=== PATIENT | male | born 1960 | race Caucasian/White ===

== ENCOUNTER 2017-05-17 08:40 | Emergency (ER) | payer OTHER ==
[~2017-05-17] VITALS: Ht 188 cm; Wt 109.0 kg
[2017-05-17 09:44] LABS: EOSINOPHIL (%) 2.7 % (0-5); EOSINOPHIL COUNT 0.2 K/uL (0-0.3); HEMATOCRIT 33.6 % (38.0-50.0); IMMATURE GRANULOCYTE (%) 0.7 % (0.0-0.7); IMMATURE GRANULOCYTE COUNT 0.1 K/uL; INSTRUMENT ABS NEUTROPHIL CT 6.1 K/uL; LYMPHOCYTE COUNT 1.2 K/uL (1.0-2.8); MCH 30.2 PG (29.0-34.0); MCV 91.6 FL (86-99); MEAN PLAT.VOLUME 9.2 uM^3 (9.0-12.4); NEUTROPHIL (%) 70.4 % (45-76); NEUTROPHIL COUNT 6.1 K/uL (1.8-6.4); PLATELET COUNT 268 K/uL (156-360); RBC DIS.WIDTH-CV 12.3 % (11.8-14.6); RBC DIS.WIDTH-SD 40.9 % (39-53); RED BLOOD COUNT 3.67 M/uL (4.00-5.50); WHITE BLOOD COUNT 8.6 K/uL (4.1-10.2)
[2017-05-17 09:54] LABS: CHLORIDE 106 mEq/L (99-109); POTASSIUM 4.4 mEq/L (3.7-5.4); SODIUM 139 mEq/L (136-147)
[2017-05-17 09:56] LABS: GLUCOSE 121 mg/dL (70-99)
[2017-05-17 09:57] LABS: ANION GAP 9 MEQ/L (2-14)
[2017-05-17 10:00] LABS: GFR ESTIMATE (CALCULATED) > 59 mL/min/; UREA NITROGEN (BUN) 17 mg/dL (9-23)
[2017-05-17 10:06] LABS: TROP-I INTERPRETATION NEGATIVE; TROPONIN-I < 0.01 ng/mL (0.0-0.30)
[2017-05-17] MEDS ORDERED: MOTRIN800 MG PO (13:11)
[2017-05-17 14:02] VITALS: BP 129/71
== END 2017-05-17 14:22 | disposition home or self-care (01) ==
LOC: EME → EDBD 08:40 → EME 08:40
PROVIDERS: Emergency Medicine
DX: S40.011A Contusion of right shoulder, initial encounter (principal); M79.601 Pain in right arm; W18.39XA Other fall on same level, initial encounter; F17.200 Nicotine dependence, unspecified, uncomplicated
CPT/HCPCS: 71010; 73030; 73080; 73090; 80048; 84484; 85025; 93005; 94640; 99281; 99284

== ENCOUNTER 2017-12-24 13:13 | Observation (INO) | payer OTHER ==
[~2017-12-24] VITALS: Ht 188 cm; Wt 106.1 kg
[~2017-12-24 13:13] MED LIST: ADVAIR HFA120 INHALA IH; ATORVASTATIN CA80 MG PO; BAYER CHEWABLE81 MG PO; CLOPIDOGREL75 MG PO; CYCLOBENZAPRINE10 MG PO; METOPROLOL TART25 MG PO; MOTRIN800 MG PO; NICOTINE PATCH1 EAC2 TD; PANTOPRAZOLE SO40 MG PO; PROVENTIL HFA6.7 GM IH; SPIRIVA RESPIMAT4 GM IH; TAMSULOSIN HCL0.4 MG PO; TRAMADOL HCL50 MG PO; VENTOLIN HFA18 GM IH
[2017-12-24 14:21] LABS: BASOPHIL (%) 0.4 % (0-1); EOSINOPHIL (%) 2.8 % (0-5); EOSINOPHIL COUNT 0.1 K/uL (0-0.3); HEMATOCRIT 32.7 % (38.0-50.0); HEMOGLOBIN 10.6 G/DL (12.5-16.6); IMMATURE GRANULOCYTE (%) 0.2 % (0.0-0.7); LYMPHOCYTE (%) 27.5 % (15-42); LYMPHOCYTE COUNT 1.4 K/uL (1.0-2.8); MCHC 32.4 G/DL (30.0-36.0); MCV 83.2 FL (86-99); MONOCYTE (%) 10.8 % (3-12); MONOCYTE COUNT 0.6 K/uL (0-0.8); NEUTROPHIL (%) 58.3 % (45-76); PLATELET COUNT 208 K/uL (156-360); RBC DIS.WIDTH-CV 15.3 % (11.8-14.6); RBC DIS.WIDTH-SD 46.5 % (39-53); RED BLOOD COUNT 3.93 M/uL (4.00-5.50); WHITE BLOOD COUNT 5.1 K/uL (4.1-10.2)
[2017-12-24 14:28] LABS: PTT 30.6 SEC (25-37)
[2017-12-24 14:30] LABS: CHLORIDE 107 mEq/L (99-109); POTASSIUM 4.2 mEq/L (3.7-5.4); SODIUM 139 mEq/L (136-147)
[2017-12-24 14:32] LABS: GLUCOSE 94 mg/dL (70-99)
[2017-12-24 14:36] LABS: CREATININE 0.8 mg/dL (0.6-1.3); GFR ESTIMATE (CALCULATED) > 59 mL/min/ (58.99-99999)
[2017-12-24 14:37] LABS: UREA NITROGEN (BUN) 13 mg/dL (9-23)
[2017-12-24 14:41] LABS: TROP-I INTERPRETATION NEGATIVE; TROPONIN-I 0.04 ng/mL (0.0-0.30)
[2017-12-24] MEDS ORDERED: HYDROXYZINE PAM25 MG PO (21:06)
[2017-12-24] MEDS ORDERED: NICODERM CQ1 EAC2 TD (21:10)
[2017-12-24 21:23] LABS: TROP-I INTERPRETATION NEGATIVE; TROPONIN-I 0.02 ng/mL (0.0-0.30)
[2017-12-24 21:47] VITALS: BP 134/66
[2017-12-24 23:38] LABS: APPEARANCE CLEAR ((CLEAR)); BILIRUBIN NEGATIVE; BLOOD NEGATIVE; COLOR YELLOW ((YELLOW)); GLUCOSE (STRIP) NEGATIVE; KETONES NEGATIVE; LEUKOCYTES NEGATIVE; NITRITE NEGATIVE; PROTEIN (STRIP) NEGATIVE; SPECIFIC GRAVITY 1.015 (1.000-1.030); UCUL ADDED? NO; UROBILINOGEN 0.2 MG/DL (0.2-1.0)
[2017-12-25 03:16] VITALS: BP 128/70
[2017-12-25 03:44] LABS: TROP-I INTERPRETATION NEGATIVE; TROPONIN-I 0.02 ng/mL (0.0-0.30)
[2017-12-25 07:00] VITALS: BP 150/96
[2017-12-25 11:12] VITALS: BP 135/65
[2017-12-25] MEDS ORDERED: PANTOPRAZOLE SO40 MG PO (15:16)
[2017-12-25] MEDS ORDERED: NICODERM CQ1 EAC2 TD (15:16)
[2017-12-25] MEDS ORDERED: TAMSULOSIN HCL0.4 MG PO (15:16)
[2017-12-25] MEDS ORDERED: VENTOLIN HFA18 GM IH (15:16)
[2017-12-25] MEDS ORDERED: ATORVASTATIN CA80 MG PO (15:16)
[2017-12-25] MEDS ORDERED: BAYER CHEWABLE81 MG PO (15:16)
[2017-12-25] MEDS ORDERED: CLOPIDOGREL75 MG PO (15:16)
[2017-12-25] MEDS ORDERED: HYDROXYZINE PAM25 MG PO (15:16)
[2017-12-25] MEDS ORDERED: METOPROLOL TART25 MG PO (15:16)
== END 2017-12-25 18:02 | disposition home or self-care (01) ==
LOC: EME 13:13 → EDOF 20:07 → ENRESERV 20:11 → 5WEST 21:42
PROVIDERS: Emergency Medicine; Physician Assistant
DX: R07.89 Other chest pain (principal); I25.10 Atherosclerotic heart disease of native coronary artery without angina pectoris; Z95.1 Presence of aortocoronary bypass graft; M79.604 Pain in right leg; F17.210 Nicotine dependence, cigarettes, uncomplicated; I10 Essential (primary) hypertension; E78.5 Hyperlipidemia, unspecified; Z59.0 Homelessness; J44.9 Chronic obstructive pulmonary disease, unspecified; Z79.82 Long term (current) use of aspirin; N40.0 Benign prostatic hyperplasia without lower urinary tract symptoms; T39.016A Underdosing of aspirin, initial encounter; Z91.120 Patient's intentional underdosing of medication regimen due to financial hardship
CPT/HCPCS: 71045; 71275; 80048; 81003; 83735; 84484; 85025; 85610; 85730; 87502; 93005; 93971; 94640; 94640 76; 94760; 99202; 99281; 99285; G0378; J1644; J1885; J3010; J7030

== ENCOUNTER 2018-01-12 18:31 | Emergency (ER) | payer OTHER ==
[~2018-01-12] VITALS: Ht 188 cm; Wt 105.5 kg
[~2018-01-12 18:31] MED LIST changes: +HYDROXYZINE PAM25 MG PO; +NICODERM CQ1 EAC2 TD
[2018-01-12 19:17] LABS: BASOPHIL (%) 0.2 % (0-1); EOSINOPHIL (%) 1.7 % (0-5); EOSINOPHIL COUNT 0.1 K/uL (0-0.3); HEMATOCRIT 34.2 % (38.0-50.0); HEMOGLOBIN 11.2 G/DL (12.5-16.6); IMMATURE GRANULOCYTE (%) 0.4 % (0.0-0.7); LYMPHOCYTE (%) 12.2 % (15-42); MCH 27.5 PG (29.0-34.0); MCHC 32.7 G/DL (30.0-36.0); MCV 83.8 FL (86-99); MONOCYTE (%) 8.7 % (3-12); MONOCYTE COUNT 0.7 K/uL (0-0.8); NEUTROPHIL (%) 76.8 % (45-76); NEUTROPHIL COUNT 6.3 K/uL (1.8-6.4); PLATELET COUNT 207 K/uL (156-360); RBC DIS.WIDTH-CV 15.2 % (11.8-14.6); RBC DIS.WIDTH-SD 46.4 % (39-53); RED BLOOD COUNT 4.08 M/uL (4.00-5.50); WHITE BLOOD COUNT 8.3 K/uL (4.1-10.2)
[2018-01-12 19:26] LABS: INTER. NORMALIZED RATIO 1.1
[2018-01-12 19:29] LABS: PTT 30.6 SEC (25-37)
[2018-01-12 19:38] LABS: TROP-I INTERPRETATION NEGATIVE; TROPONIN-I 0.02 ng/mL (0.0-0.30)
[2018-01-12 19:39] LABS: CHLORIDE 105 mEq/L (99-109); POTASSIUM 4.2 mEq/L (3.7-5.4); SODIUM 139 mEq/L (136-147)
[2018-01-12 19:41] LABS: GLUCOSE 101 mg/dL (70-99)
[2018-01-12 19:45] LABS: CREATININE 0.9 mg/dL (0.6-1.3); GFR ESTIMATE (CALCULATED) > 59 mL/min/ (58.99-99999)
[2018-01-12 19:46] LABS: UREA NITROGEN (BUN) 17 mg/dL (9-23)
[2018-01-12 21:59] LABS: TROP-I INTERPRETATION NEGATIVE; TROPONIN-I 0.02 ng/mL (0.0-0.30)
[2018-01-12 23:05] VITALS: BP 112/69
== END 2018-01-12 23:05 | disposition home or self-care (01) ==
LOC: EME 18:31
PROVIDERS: Emergency Medicine
DX: R07.89 Other chest pain (principal); B34.9 Viral infection, unspecified; J44.9 Chronic obstructive pulmonary disease, unspecified; I10 Essential (primary) hypertension; E78.5 Hyperlipidemia, unspecified; I25.2 Old myocardial infarction; F17.200 Nicotine dependence, unspecified, uncomplicated; Z95.1 Presence of aortocoronary bypass graft; Z86.73 Personal history of transient ischemic attack (TIA), and cerebral infarction without residual deficits; Z85.9 Personal history of malignant neoplasm, unspecified
CPT/HCPCS: 71045; 80048; 84484; 85025; 85610; 85730; 87502; 93005; 94640; 99281; 99284